=== PATIENT | female | born 1960 | race Hispanic/Latino ===

== ENCOUNTER 2017-01-13 20:44 | Emergency (ER) | payer OTHER ==
[2017-01-13 21:09] VITALS: O2SAT 97
--- NOTE | 2017-01-13 22:27 | C.PDOC ---
History Of Present Illness 57 y/o female presents to ED with c/o worsening dizziness over the last several days. Patient states she has been feeling worse, noting she was evaluated by PMD today and given rx for Antivert, but has not taken it. Otherwise, patient denies fever, chills, nausea, vomiting, or visual changes. Patient states dizziness worsens from lying down to standing up. Time Seen by Provider: 01/13/17 22:27 Chief Complaint (Nursing): Dizziness/Lightheaded History Per: Patient History/Exam Limitations: no limitations Onset/Duration Of Symptoms: Days Current Symptoms Are (Timing): Still Present Seizure Or Post-ictal Symptoms: None Fall Associated With With Symptoms: No Recent travel outside of the [place]: No Past Medical History Reviewed: Historical Data, Nursing Documentation, Vital Signs Vital Signs: Last Vital Signs Temp 97.0 F L 01/13/17 21:04 Pulse 80 01/13/17 21:04 Resp 18 01/13/17 21:04 BP 121/71 01/13/17 21:04 Pulse Ox 97 01/14/17 01:10 - Medical History PMH: Gastritis, Hypothyroidism Family History: States: Unknown Family Hx - Social History Hx Alcohol Use: No Hx Substance Use: No - Immunization History Hx Tetanus Toxoid Vaccination: No Hx Influenza Vaccination: No Hx Pneumococcal Vaccination: No Review Of Systems Constitutional: Negative for: Fever, Chills Eyes: Negative for: Vision Change Cardiovascular: Negative for: Chest Pain Respiratory: Negative for: Shortness of Breath Gastrointestinal: Negative for: Nausea, Vomiting Skin: Negative for: Rash Neurological: Positive for: Dizziness. Negative for: Headache Physical Exam - Physical Exam Appears: Non-toxic, No Acute Distress Skin: Warm, Dry Head: Atraumatic, Normacephalic Eye(s): bilateral: PERRL, EOMI Oral Mucosa: Moist Neck: Normal ROM, No Paracervical Tenderness, Supple Chest: Symmetrical Cardiovascular: Rhythm Regular Respiratory: No Rales, No Rhonchi, No Wheezing Gastrointestinal/Abdominal: Soft, No Tenderness, No Guarding, No Rebound Back: Normal Inspection Extremity: Normal ROM, Capillary Refill (< 2 sec.) Extremity: Bilateral: Normal Color And Temperature Neurological/Psych: Oriented x3, Normal Speech, Normal Cognition, No Romberg, Other (no nystagmus) ED Course And Treatment - Laboratory Results Result Diagrams: 01/13/17 23:07 01/13/17 23:07 O2 Sat by Pulse Oximetry: 97 (RA) Pulse Ox Interpretation: Normal - CT Scan/US CT Head Other Rad Studies (CT/US): Read By Radiologist, Radiology Report Reviewed CT/US Interpretation: IMPRESSION: 1. No definite acute intracranial abnormality Progress Note: CT Head, bloodwork, Zofran ordered. Reevaluation Time: 01:11 Reassessment Condition: Improved Disposition Counseled Patient/Family Regarding: Studies Performed, Diagnosis, Need For Followup - Disposition Referrals: Dixie Bain MD [Staff Provider] - Grzegorz Mcknight MD [Staff Provider] - Disposition: HOME/ ROUTINE Disposition Time: 22:27 Condition: FAIR Instructions: Dizziness (ED), Vertigo (ED), Tinnitus (ED) - Clinical Impression Clinical Impression: Dizziness, Tinnitus - Scribe Statement The provider has reviewed the documentation as recorded by the Kayleen Whittaker Provider Attestation: All medical record entries made by the Kayleen were at my direction and personally dictated by me. I have reviewed the chart and agree that the record accurately reflects my personal performance of the history, physical exam, medical decision making, and the department course for this patient. I have also personally directed, reviewed, and agree with the discharge instructions and disposition.
[2017-01-13 23:11] LABS: BASO % 0.6 % (0.0-2.0); EOS % 0.1 % (0.0-4.0); HEMATOCRIT 40.8 % (34.0-47.0); LYMPH # 1.5 K/uL (1.0-4.3); LYMPH % 19.3 % (20.0-40.0); MEAN CELL VOLUME 95.1 fL (81.0-99.0); MEAN CORPUSCULAR HEMOGLOBIN 31.1 pg (27.0-31.0); MEAN CORPUSCULAR HGB CONC 32.7 g/dL (33.0-37.0); MONO # 0.5 K/uL (0.0-0.8); NRBC % 0.1 % (0.0-2.0); RED CELL DISTRIBUTION WIDTH 15.7 % (11.5-14.5); WHITE BLOOD COUNT 7.6 K/uL (4.8-10.8)
[2017-01-13 23:19] LABS: CHLORIDE 104 mmol/L (98-107); SODIUM 139 mmol/L (132-148)
[2017-01-13 23:20] LABS: POTASSIUM 3.9 mmol/L (3.6-5.2)
[2017-01-13 23:22] LABS: ALB/GLOB RATIO 1.1 (1.0-2.1); ALKALINE PHOSPHATASE 81 U/L (38-126); ALT/SGPT 22 U/L (9-52); AST/SGOT 20 U/L (14-36); BILIRUBIN,TOTAL 0.4 mg/dL (0.2-1.3); BLOOD UREA NITROGEN 9 mg/dL (7-17); CARBON DIOXIDE 26 mmol/L (22-30); GFR AFRICAN-AMERICAN > 60; GLUCOSE,RANDOM 114 mg/dL (65-105)
[2017-01-13 23:23] LABS: CALCIUM 8.9 mg/dl (8.6-10.4)
[2017-01-13 23:53] LABS: THYROID STIMULATING HORMONE 1.43 mIU/L (0.46-4.68)
--- NOTE | 2017-01-14 00:01 | CT ---
EXAM: CT Head Without Intravenous Contrast CLINICAL HISTORY: 57 years old, female; Signs and symptoms; Dizziness TECHNIQUE: Axial computed tomography images of the head/brain without intravenous contrast. This CT exam was performed using one or more of the following dose reduction techniques: automated exposure control, adjustment of the mA and/or kV according to patient size, and/or use of iterative reconstruction technique. Coronal and sagittal reformatted images were created and reviewed. COMPARISON: No relevant prior studies available. FINDINGS: Limitations: Suboptimal positioning. No zinc plater view. Brain: No intracranial hemorrhage. No mass. No definite edema. Ventricles: No hydrocephalus. Bones/joints: No acute fracture. Soft tissues: Unremarkable. Sinuses: No acute sinusitis. Mastoid air cells: No mastoid effusion. Orbits: Unremarkable as visualized. IMPRESSION: 1. No definite acute intracranial abnormality. 2. Incidental/non-acute findings are described above.
[2017-01-14 01:17] VITALS: BP 129/78; PULSE 72; RESP 16; TEMP 98.4
== END 2017-01-14 01:28 | disposition home or self-care (01) ==
LOC: C.ER 20:44
DX: H93.19 Tinnitus, unspecified ear (principal); R42 Dizziness and giddiness
CPT/HCPCS: 70450; 80053; 84443; 85025; 96374; 99285; J2405

== ENCOUNTER 2017-01-14 13:52 | Emergency (ER) | payer OTHER ==
[2017-01-14 14:00] VITALS: RESP 16; O2SAT 100
[2017-01-14] MEDS ORDERED: Sodium Chloride 0.9% 1,000 ML IV ONE ×2 (14:49→17:17)
--- NOTE | 2017-01-14 14:50 | C.PDOC ---
Time Seen by Provider: 01/14/17 14:24 Chief Complaint (Nursing): Dizziness/Lightheaded History Per: Patient, Family Onset/Duration Of Symptoms: Days (2?), Intermittent Episodes Current Symptoms Are (Timing): Still Present Possible Causative Factor(s): Lightheaded W/Change In Head Position Fall Associated With With Symptoms: No Severity: Moderate Additional History Per: Prior Records - Symptoms Of CVA Recent Head Trauma: No Past Medical History Reviewed: Historical Data, Nursing Documentation, Vital Signs Vital Signs: Last Vital Signs Temp 98.4 F 01/14/17 17:30 Pulse 78 01/14/17 17:30 Resp 16 01/14/17 17:30 BP 122/76 01/14/17 17:30 Pulse Ox 100 01/14/17 17:30 - Medical History PMH: Gastritis, Hypothyroidism Family History: States: Unknown Family Hx - Social History Hx Alcohol Use: No Hx Substance Use: No - Immunization History Hx Tetanus Toxoid Vaccination: No Hx Influenza Vaccination: No Hx Pneumococcal Vaccination: No Review Of Systems Except As Marked, All Systems Reviewed And Found Negative. Constitutional: Negative for: Fever Eyes: Negative for: Vision Change ENT: Negative for: Ear Discharge Cardiovascular: Negative for: Chest Pain Respiratory: Negative for: Shortness of Breath Gastrointestinal: Negative for: Vomiting, Abdominal Pain Genitourinary: Negative for: Dysuria Musculoskeletal: Negative for: Neck Pain Skin: Negative for: Rash Neurological: Positive for: Dizziness. Negative for: Weakness, Numbness, Incoordination, Change in Speech, Confusion, Seizures, Altered Mental Status, Headache Physical Exam - Physical Exam Appears: Non-toxic, No Acute Distress Skin: Normal Color, Warm, Dry, No Rash Head: Atraumatic, Normacephalic Eye(s): bilateral: PERRL, EOMI Ear(s): Bilateral: Normal Neck: Normal ROM, Supple Cardiovascular: Rhythm Regular Respiratory: Normal Breath Sounds, No Accessory Muscle Use Gastrointestinal/Abdominal: Soft, No Tenderness Extremity: Normal ROM Neurological/Psych: Oriented x3, Normal Speech, No Cerebellar Signs, Normal Motor, Normal Sensation Gait: Steady ED Course And Treatment - Laboratory Results Result Diagrams: 01/14/17 15:07 01/14/17 15:07 Lab Interpretation: No Acute Changes ECG: Interpreted By Me, Viewed By Me ECG Rhythm: Sinus Rhythm, Nonspecific Changes ECG Interpretation: No Acute Changes Rate From EC O2 Sat by Pulse Oximetry: 100 Pulse Ox Interpretation: Normal Progress - Interventions Interventions:: Observation, Intravenous fluid - Medications Administered Oral: Other (Meclizine) - Data Reviewed Data Reviewed: Lab, EKG, Old records - Patient Status Patient status: Mostly improved - Continuity of Care Discussed patient case with:: Patient, Family-HIPPA compliant, ED Nurse - Patient Plan Patient Plan: Discharge, F/U with PCP, Continue present meds Disposition Counseled Patient/Family Regarding: Studies Performed, Diagnosis, Need For Followup, Rx Given - Disposition Referrals: Spike Mackay MD [Staff Provider] - Steffen Mcgowan MD [Staff Provider] - Disposition: HOME/ ROUTINE Disposition Time: 19:21 Condition: IMPROVED Additional Instructions: Follow up with your doctor. Follow up with an ENT doctor and/or Neurologist for further evaluation and treatment. Return to the ER if you develop worsening of symptoms or if you have any other concerns. Prescriptions: Meclizine [Meclizine*] 25 mg PO Q6 PRN #30 tab PRN Reason: Dizziness Instructions: Vertigo (ED) - Clinical Impression Clinical Impression: Vertigo
[2017-01-14 15:12] LABS: BASO # 0.1 K/uL (0.0-0.2); BASO % 0.6 % (0.0-2.0); EOS % 0.4 % (0.0-4.0); HEMATOCRIT 40.7 % (34.0-47.0); LYMPH # 1.6 K/uL (1.0-4.3); LYMPH % 18.5 % (20.0-40.0); MEAN CELL VOLUME 95.3 fL (81.0-99.0); MEAN CORPUSCULAR HEMOGLOBIN 30.6 pg (27.0-31.0); MEAN CORPUSCULAR HGB CONC 32.2 g/dL (33.0-37.0); MEAN PLATELET VOLUME 9.2 fL (7.2-11.7); MONO # 0.6 K/uL (0.0-0.8); MONO % 6.9 % (0.0-10.0); RED CELL DISTRIBUTION WIDTH 15.2 % (11.5-14.5); WHITE BLOOD COUNT 8.6 K/uL (4.8-10.8)
[2017-01-14 15:31] LABS: CHLORIDE 101 mmol/L (98-107); POTASSIUM 4.3 mmol/L (3.6-5.2); SODIUM 137 mmol/L (132-148)
[2017-01-14 15:33] LABS: AST/SGOT 25 U/L (14-36); BILIRUBIN,TOTAL 0.4 mg/dL (0.2-1.3); CARBON DIOXIDE 24 mmol/L (22-30); GFR AFRICAN-AMERICAN > 60
[2017-01-14 15:34] LABS: ALCOHOL SERUM < 10 mg/dl (0-10); ALKALINE PHOSPHATASE 93 U/L (38-126); ALT/SGPT 30 U/L (9-52); BLOOD UREA NITROGEN 14 mg/dL (7-17); CALCIUM 9.3 mg/dl (8.6-10.4); GLUCOSE,RANDOM 117 mg/dL (65-105); MAGNESIUM 2.2 mg/dL (1.6-2.3); TOTAL PROTEIN 8.4 g/dL (6.3-8.3)
[2017-01-14 17:11] LABS: RBC URINE < 1 /hpf (0-3); URINE BILIRUBIN NEGATIVE (NEGATIVE); URINE BLOOD NEGATIVE (NEGATIVE); URINE COLOR Straw (YELLOW); URINE GLUCOSE (UA) NORMAL (Normal); URINE KETONE NEGATIVE (NEGATIVE); URINE LEUKOCYTE ESTERASE NEG Leu/uL (Negative); URINE PROTEIN NEGATIVE (NEGATIVE); URINE UROBILINOGEN NORMAL mg/dL (0.2-1.0); WBC URINE < 1 /hpf (0-5)
[2017-01-14] MEDS ORDERED: Sodium Chloride 0.9% 1,000 ML ONE (17:27)
[2017-01-14 17:31] VITALS: BP 122/76; PULSE 78; TEMP 98.4
== END 2017-01-14 19:27 | disposition home or self-care (01) ==
LOC: C.ER 13:52
DX: R42 Dizziness and giddiness (principal)
CPT/HCPCS: 80053; 80320; 80324; 80345; 80346; 80349; 80353; 80358; 80361; 81001; 83735; 83992; 84484; 85025; 96360; 96361; 99285; J7040

== ENCOUNTER 2017-02-25 23:25 | Emergency (ER) | payer BC, OTHER ==
[2017-02-25 23:38] VITALS: TEMP 97.8; O2SAT 98
--- NOTE | 2017-02-26 00:01 | C.PDOC ---
History Of Present Illness 57 year old female who presents to the ER with a complaint of chronic dizziness with and without medication since December. Patient has had multiple reevaluations since December that have been negative; her PMD is Dr. Bain. Patient is currently compliant with her thyroid medication and meclozine. Patient reports having a Hx of lymphoma and is in remission. Denies nausea, vomiting, or headache. Time Seen by Provider: 02/25/17 23:51 Chief Complaint (Nursing): Dizziness/Lightheaded History Per: Patient History/Exam Limitations: no limitations Onset/Duration Of Symptoms: Hrs Current Symptoms Are (Timing): Still Present Recent travel outside of the [place]: No Past Medical History Reviewed: Historical Data, Nursing Documentation, Vital Signs Vital Signs: Last Vital Signs Temp 97.8 F 02/25/17 23:36 Pulse 70 02/26/17 00:10 Resp 14 02/26/17 00:10 BP 112/70 02/26/17 00:10 Pulse Ox 98 02/26/17 00:10 - Medical History PMH: Gastritis, Hypothyroidism Surgical History: No Surg Hx Family History: States: Unknown Family Hx - Social History Hx Alcohol Use: No Hx Substance Use: No - Immunization History Hx Tetanus Toxoid Vaccination: No Hx Influenza Vaccination: No Hx Pneumococcal Vaccination: No Review Of Systems Constitutional: Negative for: Fever, Chills Gastrointestinal: Negative for: Nausea, Vomiting Neurological: Positive for: Dizziness. Negative for: Headache Physical Exam - Physical Exam Appears: Non-toxic, No Acute Distress, Other (Pressured speech, anxious) Skin: Normal Color, Warm, Dry Head: Atraumatic, Normacephalic Eye(s): bilateral: Normal Inspection, PERRL, EOMI Oral Mucosa: Moist Chest: Symmetrical, No Tenderness Cardiovascular: Rhythm Regular, No Murmur Respiratory: Normal Breath Sounds, No Rales, No Rhonchi, No Wheezing Gastrointestinal/Abdominal: Soft, No Tenderness Neurological/Psych: Oriented x3, Normal Speech, Normal Cognition ED Course And Treatment O2 Sat by Pulse Oximetry: 98 (Room air) Pulse Ox Interpretation: Normal Medical Decision Making Medical Decision Making: normal exam, many prior evals for same complaints since 01/[address] 01/08, defer repeating for no new symptoms. no vertigo nor BPV here suspect anxiety or underlying psych issues advised to defer meclizine and thyroid meds for now and f/u with Dr. Kruse. Disposition Doctor Will See Patient In The: Office Counseled Patient/Family Regarding: Studies Performed, Diagnosis - Disposition Referrals: Dixie Bain MD [Staff Provider] - Disposition: HOME/ ROUTINE Disposition Time: 00:01 Condition: GOOD Additional Instructions: hold off on your Meclizine and Thyroid medicines if you do not tolerate them well. Follow up with Dr. Kruse Call for an appointment. Instructions: Dizziness (ED), Anxiety (ED) Forms: [employer] ([place]an) - Clinical Impression Clinical Impression: Anxiety, Dizziness - Scribe Statement The provider has reviewed the documentation as recorded by the Scribe Foster Wadsworth All medical record entries made by the Scribe were at my direction and personally dictated by me. I have reviewed the chart and agree that the record accurately reflects my personal performance of the history, physical exam, medical decision making, and the department course for this patient. I have also personally directed, reviewed, and agree with the discharge instructions and disposition.
[2017-02-26 00:11] VITALS: BP 112/70; PULSE 70; RESP 14
== END 2017-02-26 00:11 | disposition home or self-care (01) ==
LOC: C.ER 23:25
DX: F41.9 Anxiety disorder, unspecified (principal); R42 Dizziness and giddiness

== ENCOUNTER 2017-03-30 06:25 | Emergency (ER) | payer OTHER ==
[2017-03-30 07:07] LABS: BASO # 0.1 K/uL (0.0-0.2); BASO % 0.7 % (0.0-2.0); EOS % 0.6 % (0.0-4.0); HEMATOCRIT 38.3 % (34.0-47.0); LYMPH # 1.3 K/uL (1.0-4.3); LYMPH % 17.2 % (20.0-40.0); MEAN CELL VOLUME 94.3 fL (81.0-99.0); MEAN CORPUSCULAR HGB CONC 33.9 g/dL (33.0-37.0); MEAN PLATELET VOLUME 8.9 fL (7.2-11.7); MONO # 0.6 K/uL (0.0-0.8); MONO % 8.1 % (0.0-10.0); RED CELL DISTRIBUTION WIDTH 15.2 % (11.5-14.5); WHITE BLOOD COUNT 7.4 K/uL (4.8-10.8)
[2017-03-30 07:21] LABS: CHLORIDE 106 mmol/L (98-107); POTASSIUM 4.5 mmol/L (3.6-5.2); SODIUM 140 mmol/L (132-148)
[2017-03-30 07:23] LABS: GFR AFRICAN-AMERICAN > 60
[2017-03-30 07:24] LABS: ALB/GLOB RATIO 1.1 (1.0-2.1); ALKALINE PHOSPHATASE 72 U/L (38-126); ALT/SGPT 25 U/L (9-52); AST/SGOT 37 U/L (14-36); BILIRUBIN,TOTAL 0.8 mg/dL (0.2-1.3); BLOOD UREA NITROGEN 14 mg/dL (7-17); CARBON DIOXIDE 22 mmol/L (22-30); GLUCOSE,RANDOM 108 mg/dL (65-105); TOTAL PROTEIN 8.2 g/dL (6.3-8.3)
[2017-03-30 07:25] LABS: CALCIUM 8.7 mg/dl (8.6-10.4)
[2017-03-30 07:54] LABS: THYROID STIMULATING HORMONE 3.91 mIU/L (0.46-4.68)
[2017-03-30 08:27] VITALS: BP 115/74; PULSE 83; RESP 12; TEMP 98; O2SAT 95
--- NOTE | 2017-03-30 08:47 | C.PDOC ---
History Of Present Illness 57 year old female, with PMHx of hypothyroidism, presents to ED for evaluation of lightheadedness last night. Pt notes having similar symptoms intermittently for the past several months. Pt states her blood pressure was 145/86 at home, and she came to ED for evaluation. Pt states she would also like to have her thyroid levels checked. Patient has already been seen by ENT, Dr. Mackay, for dizziness and has scheduled appointment with neurologist, Dr. Cummings, on . She denies chest pain, shortness of breath, abdominal pain, nausea, vomiting , visual changes, extremity weakness/numbness, facial droop, slurred speech, or fever. Time Seen by Provider: 03/30/17 07:20 Chief Complaint (Nursing): Dizziness/Lightheaded History Per: Patient History/Exam Limitations: no limitations Onset/Duration Of Symptoms: Days Current Symptoms Are (Timing): Better Seizure Or Post-ictal Symptoms: None Additional History Per: Patient Past Medical History Reviewed: Historical Data, Nursing Documentation, Vital Signs Vital Signs: Last Vital Signs Temp 98.0 F 03/30/17 08:27 Pulse 83 03/30/17 08:27 Resp 12 03/30/17 08:27 BP 115/74 03/30/17 08:27 Pulse Ox 95 03/30/17 09:00 - Medical History PMH: Gastritis, Hypercholesterolemia, Hypothyroidism Surgical History: No Surg Hx Family History: States: No Known Family Hx - Social History Hx Alcohol Use: No Hx Substance Use: No - Immunization History Hx Tetanus Toxoid Vaccination: No Hx Influenza Vaccination: No Hx Pneumococcal Vaccination: No Review Of Systems Except As Marked, All Systems Reviewed And Found Negative. Constitutional: Negative for: Fever, Chills Cardiovascular: Positive for: Light Headedness. Negative for: Chest Pain, Palpitations Respiratory: Negative for: Cough, Shortness of Breath Gastrointestinal: Negative for: Nausea, Vomiting, Abdominal Pain Neurological: Negative for: Weakness, Numbness, Change in Speech, Confusion, Seizures, Altered Mental Status, Headache Physical Exam - Physical Exam Appears: Well, Non-toxic, No Acute Distress Skin: Normal Color, Warm, Dry Head: Atraumatic, Normacephalic Eye(s): bilateral: Normal Inspection, PERRL, EOMI Oral Mucosa: Moist Neck: Supple Chest: Symmetrical Cardiovascular: Rhythm Regular, No Murmur Respiratory: Normal Breath Sounds, No Rales, No Rhonchi, No Wheezing Gastrointestinal/Abdominal: Normal Exam, Bowel Sounds, Soft, No Tenderness Extremity: Normal ROM Neurological/Psych: Oriented x3, Normal Speech, Normal Cognition, Normal Cranial Nerves, No Cerebellar Signs, Normal Motor, Normal Sensation, Normal Reflexes, No Dysarthria, No Romberg Gait: Steady ED Course And Treatment - Laboratory Results Result Diagrams: 03/30/17 07:04 03/30/17 07:04 O2 Sat by Pulse Oximetry: 95 (on RA) Pulse Ox Interpretation: Normal Progress Note: Blood work ordered and reviewed. Reevaluation Time: 08:30 Reassessment Condition: Improved (Patient reassessed, is currently resting comfortably and states she feels well, has no symptoms. Blood work, including TSH, are WNL. Patient is well appearing, with normal vitals, and is ambulating normally in ED. Patient instructed to follow up with PMD in 1-2 days, and with Dr. Cummings as scheduled. She understands she should return to Ed if symptoms worsen/return.) Disposition Counseled Patient/Family Regarding: Studies Performed, Diagnosis, Need For Followup - Disposition Referrals: Dixie Bain MD [Primary Care Provider] - Navid Cummings MD [Staff Provider] - Disposition: HOME/ ROUTINE Disposition Time: 08:30 Condition: STABLE Additional Instructions: FOLLOW UP WITH DR CUMMINGS SCHEDULED, AND WITH YOUR DOCTOR IN 1-2 DAYS RETURN TO ER IF YOU HAVE ANY CONCERNING SYMPTOMS Forms: General Discharge Instructions, [facility] (Turkmen) Print Language: [email or web address] - Clinical Impression Clinical Impression: Dizziness - Scribe Statement The provider has reviewed the documentation as recorded by the Kayleen Martinez All medical record entries made by the Kayleen were at my direction and personally dictated by me. I have reviewed the chart and agree that the record accurately reflects my personal performance of the history, physical exam, medical decision making, and the department course for this patient. I have also personally directed, reviewed, and agree with the discharge instructions and disposition.
--- NOTE | 2017-03-31 17:52 | CARD ---
APPROVED REPORT EKG Measurement Heart [id number] [id number] <Conclusion> Normal sinus rhythm Normal ECG
== END 2017-03-30 08:42 | disposition home or self-care (01) ==
LOC: SUPCPDRO 06:25 → C.ER 06:25
DX: R42 Dizziness and giddiness (principal); E03.9 Hypothyroidism, unspecified

== ENCOUNTER 2017-07-05 20:00 | Emergency (ER) | payer OTHER ==
[2017-07-05 21:12] LABS: BASO % 0.5 % (0.0-2.0); EOS # 0.1 K/uL (0.0-0.7); EOS % 1.3 % (0.0-4.0); HEMATOCRIT 41.8 % (34.0-47.0); LYMPH % 15.5 % (20.0-40.0); MEAN CELL VOLUME 94.9 fL (81.0-99.0); MEAN CORPUSCULAR HEMOGLOBIN 31.5 pg (27.0-31.0); MEAN CORPUSCULAR HGB CONC 33.2 g/dL (33.0-37.0); MEAN PLATELET VOLUME 9.3 fL (7.2-11.7); MONO # 0.5 K/uL (0.0-0.8); MONO % 6.8 % (0.0-10.0); NRBC % 0.1 % (0.0-2.0); RED CELL DISTRIBUTION WIDTH 15.3 % (11.5-14.5); WHITE BLOOD COUNT 6.8 K/uL (4.8-10.8)
--- NOTE | 2017-07-05 21:21 | C.PDOC ---
History Of Present Illness Perlita Menon is a 57 year old female, with a past medical history of HTN and hypothyroidism, who presents to the emergency department complaining of dizziness, weakness, and palpitations onset since yesterday. Patient also reports having a high blood pressure, she is currently taking medications for hypothyroidism. Patient states that on early May she had an URI and was given Zithromax. After she was done with the medication, she began feeling chest tightness. No further medical complaints. PMD: Dixie Bain Time Seen by Provider: 07/05/17 20:27 Chief Complaint (Nursing): Dizziness/Lightheaded History Per: Patient History/Exam Limitations: no limitations Onset/Duration Of Symptoms: Days (x1) Seizure Or Post-ictal Symptoms: None Fall Associated With With Symptoms: No Pain Scale Rating Of: 5 Past Medical History Reviewed: Historical Data, Nursing Documentation, Vital Signs Vital Signs: Last Vital Signs Temp 98.6 F 07/05/17 20:08 Pulse 100 H 07/05/17 22:00 Resp 16 07/05/17 22:00 BP 132/74 07/05/17 22:00 Pulse Ox 97 07/06/17 00:02 - Medical History PMH: Gastritis, HTN, Hypercholesterolemia, Hypothyroidism Denies: Chronic Kidney Disease Family History: States: Unknown Family Hx - Social History Hx Tobacco Use: No Hx Alcohol Use: No Hx Substance Use: No - Immunization History Hx Tetanus Toxoid Vaccination: No Hx Influenza Vaccination: No Hx Pneumococcal Vaccination: No Review Of Systems Except As Marked, All Systems Reviewed And Found Negative. Constitutional: Positive for: Weakness Cardiovascular: Positive for: Palpitations Neurological: Positive for: Dizziness Physical Exam - Physical Exam Appears: No Acute Distress Skin: Normal Color, Warm, Dry Head: Atraumatic, Normacephalic Eye(s): bilateral: Normal Inspection, PERRL, EOMI Neck: Normal, Normal ROM, Supple Cardiovascular: Rhythm Regular, Murmur (3/6 systolic ) Respiratory: Normal Breath Sounds, No Accessory Muscle Use Gastrointestinal/Abdominal: Normal Exam, Soft, No Tenderness Extremity: Normal ROM, No Pedal Edema, No Deformity, No Swelling Neurological/Psych: Oriented x3, Normal Speech ED Course And Treatment - Laboratory Results Result Diagrams: 07/05/17 21:09 07/05/17 21:09 ECG: Interpreted By Me, Viewed By Me ECG Rhythm: Sinus Rhythm Interpretation Of ECG: No intervals, no axis deviation, no ST-T wave abnormalities Rate From EC O2 Sat by Pulse Oximetry: 97 (RA) Pulse Ox Interpretation: Normal - CT Scan/US CT Head Other Rad Studies (CT/US): Read By Radiologist, Radiology Report Reviewed CT/US Interpretation: IMPRESSION: No acute intracranial abnormality Medical Decision Making Medical Decision Making: Initial Impression: Dizziness and palpitations Initial Plan: --Head w/o contrast [CT] --EKG --B-type Natriuretic peptide --Comp Metabolic Panel --Thyroid Profile ---Troponin I --Chest two views (PA/LAT) [RAD] --Urinalysis --reevaluation 0002 - patient feeling better, will treat for dehydration, uti, and vertigo. Advised patient to follow up with her doctor tomorrow AM. Patient states improvement. prelim reading of cxr - nad repeat hr - 92 bpm -Reviewed her notes, she was seen in February for similar dizziness and palpitations. She was discharged home with symptoms similar to today's presentations. Disposition Counseled Patient/Family Regarding: Studies Performed, Diagnosis, Need For Followup, Rx Given - Disposition Disposition: HOME/ ROUTINE Disposition Time: 00:03 Condition: IMPROVED Additional Instructions: follow up with your doctor tomorrow take medications as prescribed call to make an appointment return to hospital if symptoms worsens or progress Prescriptions: Ciprofloxacin HCl [Cipro] 500 mg PO BID #10 tab Meclizine [Meclizine*] 25 mg PO TID PRN #15 tab PRN Reason: Dizziness Ondansetron ODT [Zofran ODT] 4 mg PO TID PRN #12 odt PRN Reason: Nausea/Vomiting Instructions: Dehydration (ED), Urinary Tract Infection in Women (ED), Vertigo (ED) Forms: [employer] (Upper Sorbian), General Discharge Instructions - Clinical Impression Clinical Impression: Dizziness, UTI (urinary tract infection), Dehydration
[2017-07-05 21:31] LABS: ALKALINE PHOSPHATASE 63 U/L (38-126); ALT/SGPT 38 U/L (9-52); AST/SGOT 30 U/L (14-36); BILIRUBIN,TOTAL 0.3 mg/dL (0.2-1.3); BLOOD UREA NITROGEN 27 mg/dL (7-17); CALCIUM 8.6 mg/dl (8.6-10.4); CARBON DIOXIDE 27 mmol/L (22-30); CHLORIDE 100 mmol/L (98-107); GFR AFRICAN-AMERICAN > 60; GLUCOSE,RANDOM 131 mg/dL (65-105); POTASSIUM 4.2 mmol/L (3.6-5.2); SODIUM 135 mmol/L (132-148); TOTAL PROTEIN 9.1 g/dL (6.3-8.3)
[2017-07-05 21:34] LABS: ALB/GLOB RATIO 0.9 (1.0-2.1)
[2017-07-05] MEDS ORDERED: DiphenhydrAMINE 50 mg/ml Inj ONE (21:35)
[2017-07-05 21:54] LABS: RBC URINE < 1 /hpf (0-3); URINE BILIRUBIN NEGATIVE (NEGATIVE); URINE BLOOD NEGATIVE (NEGATIVE); URINE COLOR Straw (YELLOW); URINE GLUCOSE (UA) NORMAL (Normal); URINE KETONE NEGATIVE (NEGATIVE); URINE LEUKOCYTE ESTERASE 1+ Leu/uL (Negative); URINE PROTEIN NEGATIVE (NEGATIVE); URINE UROBILINOGEN NORMAL mg/dL (0.2-1.0); WBC URINE 15 /hpf (0-5)
[2017-07-05 21:56] LABS: FREE T4 0.81 ng/dL (0.78-2.19)
[2017-07-05 22:10] LABS: THYROID STIMULATING HORMONE 3.03 mIU/L (0.46-4.68)
[2017-07-05 22:47] VITALS: RESP 16
--- NOTE | 2017-07-05 22:59 | CT ---
EXAM: CT Head Without Intravenous Contrast EXAM DATE/TIME: 07/05/2017 8:47 PM CLINICAL HISTORY: 57 years old, female; Signs and symptoms; Dizziness TECHNIQUE: Axial computed tomography images of the head/brain without intravenous contrast. All CT scans at this facility use one or more dose reduction techniques, viz.: automated exposure control; ma/kV adjustment per patient size (including targeted exams where dose is matched to indication; i.e. head); or iterative reconstruction technique. Coronal and sagittal reformatted images were created and reviewed. COMPARISON: CT - HEAD W/O CONTRAST 2017-01-13 23:45 FINDINGS: Brain: Ventricles are normal in size and configuration. There is no midline shift. There are no intra-axial or extra-axial mass lesions or areas of hemorrhage. There are no abnormal fluid collections. Reis-white differentiation is maintained. Ventricles: See above. Bones: Cranial vault is intact. Soft tissues: unremarkable Sinuses: There is no acute sinusitis. No Ears and mastoids: Middle ears and mastoids are unremarkable Orbits: Orbital contents are unremarkable. IMPRESSION: No acute intracranial abnormality
[2017-07-05] MEDS ORDERED: Sodium Chloride 0.9% 1,000 ML IV ONE (23:18)
[2017-07-05 23:22] VITALS: O2SAT 97
[2017-07-05] MEDS ORDERED: Sodium Chloride 0.9% 1,000 ML ONE (23:34)
[2017-07-06 00:39] VITALS: BP 127/68; PULSE 94; TEMP 98.2
--- NOTE | 2017-07-06 07:11 | RAD ---
HISTORY: chest pain COMPARISON: No prior. TECHNIQUE: Chest PA and lateral FINDINGS: LUNGS: Mild biapical pleural thickening. Mild diffuse increased interstitial lung markings. Mild patchy increased markings at the lung bases. Clinical correlation. PLEURA: No significant pleural effusion identified. No pneumothorax apparent. CARDIOVASCULAR: Normal. OSSEOUS STRUCTURES: No significant abnormalities. VISUALIZED UPPER ABDOMEN: Normal. OTHER FINDINGS: None. IMPRESSION: Mild biapical pleural thickening. Mild diffuse increased interstitial lung markings. Mild patchy increased markings at the lung bases. Clinical correlation.
--- NOTE | 2017-07-07 13:20 | CARD ---
APPROVED REPORT EKG Measurement Heart [id number] <Conclusion> Normal sinus rhythm Normal ECG
== END 2017-07-06 00:46 | disposition home or self-care (01) ==
LOC: C.ER 20:00
DX: E86.0 Dehydration (principal); N39.0 Urinary tract infection, site not specified; R42 Dizziness and giddiness; I10 Essential (primary) hypertension; E78.00 Pure hypercholesterolemia, unspecified; E03.9 Hypothyroidism, unspecified
CPT/HCPCS: 70450; 71020; 80053; 81001; 83880; 84439; 84443; 84484; 85025; 93005; 96360; 99285; J7040

== ENCOUNTER 2018-07-27 11:22 | Outpatient (CLI) | payer OTHER | END 2018-07-27 11:23 | disposition home or self-care (01) | LOC: C.LAB 11:22 | DX: E55.9 Vitamin D deficiency, unspecified (principal); E03.9 Hypothyroidism, unspecified; E78.2 Mixed hyperlipidemia; E53.8 Deficiency of other specified B group vitamins ==

== ENCOUNTER 2018-08-30 11:11 | Outpatient (CLI) | payer OTHER | END 2018-08-30 11:12 | disposition home or self-care (01) | LOC: C.RADH 11:11 | DX: E03.9 Hypothyroidism, unspecified (principal); E78.2 Mixed hyperlipidemia; E55.9 Vitamin D deficiency, unspecified; E53.8 Deficiency of other specified B group vitamins ==

== ENCOUNTER 2018-09-07 12:10 | Outpatient (CLI) | payer OTHER | END 2018-09-07 12:11 | disposition home or self-care (01) | LOC: C.VASC 12:11 ==

== ENCOUNTER 2018-09-28 11:37 | Outpatient (CLI) | payer OTHER | END 2018-09-28 11:38 | disposition home or self-care (01) | LOC: C.LAB 11:37 | DX: E55.9 Vitamin D deficiency, unspecified (principal) ==

== ENCOUNTER 2018-10-30 12:26 | Emergency (ER) | payer OTHER ==
--- NOTE | 2018-10-30 14:40 | C.PDOC ---
History Of Present Illness Patient is a 58 year old female, with a PMHx of chronic b/l leg edema and general muscle pain x1 year onset since starting synthroid, who presents to the ED c/o worsening left groin pain since last night. Patient now complains of dif ficulty walking, pain worse with bear and movement. Patient is s/p venous duplex several weeks ago by PMD for leg pain, and patient states that "she said it was normal". R leg, arms WNL. Patient is on cholesterol RX, low cholesterol diet and is + intentional weight loss. She denies any trauma, or focal weakness. WORSENING L GROIN PAIN SINCE LAST NIGHT. NOW DIFF WALKING, PAIN WORSE WT BEAR AND MOVEMENT. NO TRAUMA. DENIES FOCAL WEAKNESS. PS S/P VENOUS DUPLEX SEV WEEKS AGO BY PMD FOR LEG PAIN, "SHE SAID IT WAS NORMAL". R LEG, ARMS WNL. HO CHRONIC B/L LEG EDEMA. HO GEN MUSCLE PAIN X 1 YR ONSET SINCE STARTING SYNTHROID. ON CHOLESTEROL RX, LOW CHOLESTEROL DIET +INTENTIONAL WT LOSS. EXAM NONTOXIC ANICTERIC EXT L HIP LIMITED AROM DUE TO PAIN NO FOCAL TEND. NO ASYM. ATRAUM 2+PITTING EDEMA ?JAUNDICE REMAINDER NEG <Tessy Dodge - Last Filed: 10/30/18 18:30> History Per: Patient History/Exam Limitations: no limitations Onset/Duration Of Symptoms: Days (1) Current Symptoms Are (Timing): Still Present Recent travel outside of the [place]: No Additional History Per: Patient <Tessy Dodge - Last Filed: 10/30/18 18:30> <Layo Durán - Last Filed: 10/30/18 19:47> Time Seen by Provider: 10/30/18 14:11 Chief Complaint (Nursing): Weakness/Neurological Deficit Past Medical History Reviewed: Historical Data, Nursing Documentation, Vital Signs Vital Signs: Last Vital Signs Temp 98.5 F 10/30/18 12:39 Pulse 94 H 10/30/18 12:39 Resp 18 10/30/18 12:39 BP 122/79 10/30/18 12:39 Pulse Ox 96 10/30/18 12:39 - Medical History PMH: Gastritis, HTN, Hypercholesterolemia, Hypothyroidism Denies: Chronic Kidney Disease Surgical History: No Surg Hx Family History: States: Unknown Family Hx - Social History Hx Tobacco Use: No Hx Alcohol Use: No Hx Substance Use: No - Immunization History Hx Tetanus Toxoid Vaccination: No Hx Influenza Vaccination: No Hx Pneumococcal Vaccination: No <Tessy Dodge - Last Filed: 10/30/18 18:30> Vital Signs: Last Vital Signs Temp 99.1 F 10/30/18 18:45 Pulse 89 10/30/18 18:45 Resp 17 10/30/18 18:45 BP 131/73 10/30/18 18:45 Pulse Ox 97 10/30/18 18:45 <Layo Durán - Last Filed: 10/30/18 19:47> Review Of Systems Except As Marked, All Systems Reviewed And Found Negative. Genitourinary: Positive for: Other (left groin pain) Musculoskeletal: Positive for: Foot Pain (pedal edema) <Tessy Dodge - Last Filed: 10/30/18 18:30> Physical Exam - Physical Exam Appears: Non-toxic, No Acute Distress Skin: Other (?JAUNDICE) Head: Atraumatic, Normacephalic Eye(s): bilateral: Other (anicteric) Chest: Symmetrical, No Deformity Cardiovascular: Rhythm Regular, No Murmur Respiratory: Other (NARD) Extremity: Pedal Edema (2+PITTING EDEMA), Other (EXT L HIP LIMITED AROM DUE TO PAIN NO FOCAL TEND. NO ASYM. ATRAUM) Neurological/Psych: Oriented x3, Normal Speech, Normal Cognition <Tessy Dodge - Last Filed: 10/30/18 18:30> ED Course And Treatment - Laboratory Results Result Diagrams: 10/30/18 14:59 10/30/18 14:59 ECG: Interpreted By Me, Viewed By Me ECG Rhythm: Sinus Rhythm Rate From EC O2 Sat by Pulse Oximetry: 96 (on RA) Pulse Ox Interpretation: Normal - Radiology CXR: Interpreted by Me CXR Interpretation: Yes: No Acute Disease - Other Rad L HIP PELVIS X-Ray: Interpreted by Me (NEG) - CT Scan/US DUPLEX Other Rad Studies (CT/US): Radiology Report Reviewed (NEG) Progress Note: Plan: CXR. Labs. Venous Duplex. Xray Lft Hip. Toradol 30mg IVP. Morphine 2mp IVP <Tessy Dodge - Last Filed: 10/30/18 18:30> - Laboratory Results Result Diagrams: 10/30/18 14:59 10/30/18 14:59 Lab Results: Total Bilirubin 1.5 mg/dL (0.2-1.3) H 10/30/18 14:59 AST 34 U/L (14-36) 10/30/18 14:59 ALT 16 U/L (9-52) 10/30/18 14:59 Alkaline Phosphatase 72 U/L (38-126) 10/30/18 14:59 Total Protein 8.2 g/dL (6.3-8.3) 10/30/18 14:59 Albumin 4.4 g/dL (3.5-5.0) 10/30/18 14:59 Globulin 3.8 gm/dL (2.2-3.9) 10/30/18 14:59 Albumin/Globulin Ratio 1.2 (1.0-2.1) 10/30/18 14:59 Urine Color Yellow (YELLOW) 10/30/18 18:37 Urine Clarity Clear (Clear) 10/30/18 18:37 Urine pH 6.0 (5.0-8.0) 10/30/18 18:37 Ur Specific [place] 1.023 (1.003-1.030) 10/30/18 18:37 Urine Protein 1+ mg/dL (NEGATIVE) H 10/30/18 18:37 Urine Glucose (UA) Normal mg/dL (Normal) 10/30/18 18:37 Urine Ketones Trace mg/dL (NEGATIVE) 10/30/18 18:37 Urine Blood Negative (NEGATIVE) 10/30/18 18:37 Urine Nitrate Negative (NEGATIVE) 10/30/18 18:37 Urine Bilirubin Negative (NEGATIVE) 10/30/18 18:37 Urine Urobilinogen Normal mg/dL (0.2-1.0) 10/30/18 18:37 Ur Leukocyte Esterase Neg Marcela/uL (Negative) 10/30/18 18:37 Urine WBC (Auto) 1 /hpf (0-5) 10/30/18 18:37 Urine RBC (Auto) 1 /hpf (0-3) 10/30/18 18:37 Pulse Ox Interpretation: Normal Reevaluation Time: 19:39 Reassessment Condition: Improved <Layo Durán - Last Filed: 10/30/18 19:47> Progress - Re-Evaluation Re-evaluation Note: 10/30/18 18:29 CO PERSIST PAIN. AMBUL FULL WT BEAR BUT L LEG LIMP. PS TRIED BEDSIDE COMMODE BUT UNABLE TO GIVE UA. PENDING STRAIGHT CATH. - Data Reviewed Data Reviewed: Lab, Diagnostic imaging, Old records <Tessy Dodge - Last Filed: 10/30/18 18:30> Medical Decision Making Medical Decision Making: Upon provider reevaluation patient is feeling better, is medically stable, and requires no further treatment in the ED at this time. Patient will be discharged home . Counseling was provided and all questions were answered regarding diagnosis and need for follow up with dixie bain. There is agreement to discharge plan. Return if symptoms persist or worsen. <Layo Durán - Last Filed: 10/30/18 19:47> Disposition - Disposition Disposition Time: 19:00 <Tessy Dodge - Last Filed: 10/30/18 18:30> Counseled Patient/Family Regarding: Studies Performed, Diagnosis, Need For Followup <Layo Durán - Last Filed: 10/30/18 19:47> - Disposition Referrals: Dixie Bain MD [Staff Provider] - Disposition: HOME/ ROUTINE Condition: FAIR Additional Instructions: Please return if symptoms recur Instructions: Hip Pain (DC) Forms: [employer] (Sami) - Clinical Impression Clinical Impression: Groin pain, Difficulty walking - Scribe Statement The provider has reviewed the documentation as recorded by the Anantibart Yi All medical record entries made by the Scribe were at my direction and persona lly dictated by me. I have reviewed the chart and agree that the record accurately reflects my personal performance of the history, physical exam, medical decision making, and the department course for this patient. I have also personally directed, reviewed, and agree with the discharge instructions and disposition. <Tessy Dodge - Last Filed: 10/30/18 18:30> Physician Patient Turnover Patient Signed Over To: Layo Durán Handoff Comments: FU UA, DISPO <Tessy Dodge - Last Filed: 10/30/18 18:30>
[2018-10-30 15:03] LABS: BASO # 0.1 K/uL (0.0-0.2); BASO % 0.5 % (0.0-2.0); HEMOGLOBIN 12.3 g/dL (11.0-16.0); LYMPH # 0.7 K/uL (1.0-4.3); LYMPH % 5.6 % (20.0-40.0); MEAN CELL VOLUME 98.1 fL (81.0-99.0); MEAN CORPUSCULAR HGB CONC 33.6 g/dL (33.0-37.0); MEAN PLATELET VOLUME 10.9 fL (7.2-11.7); MONO # 1.4 K/uL (0.0-0.8); MONO % 10.8 % (0.0-10.0); NEUT # 10.9 K/uL (1.8-7.0); NEUT % 83.1 % (50.0-75.0); PLATELET COUNT 201 K/uL (130-400); RBC 3.71 Mil/uL (3.80-5.20); RED CELL DISTRIBUTION WIDTH 15.4 % (11.5-14.5)
[2018-10-30 15:05] LABS: WHITE BLOOD COUNT 13.1 K/uL (4.8-10.8)
[2018-10-30 15:14] LABS: BLOOD UREA NITROGEN 11 mg/dL (7-17); CALCIUM 9.4 mg/dl (8.6-10.4); GFR NON-AFRICAN AMERICAN > 60
[2018-10-30 15:15] LABS: ALB/GLOB RATIO 1.2 (1.0-2.1); ALBUMIN 4.4 g/dL (3.5-5.0); ALT/SGPT 16 U/L (9-52); AST/SGOT 34 U/L (14-36)
[2018-10-30 15:30] LABS: BANDS 2 % (0-2); MONOCYTE 9 % (0-10); TOTAL CELLS COUNTED 100
[2018-10-30 15:31] LABS: LYMPHOCYTE 5 % (20-40); NEUTROPHIL 84 % (50-75); PLATELET ESTIMATE NORMAL (NORMAL)
--- NOTE | 2018-10-30 16:35 | RAD ---
HISTORY: MED CLEAR COMPARISON: Chest x-ray performed 07/05/17 TECHNIQUE: Chest, one view. FINDINGS: LUNGS: No focal consolidation. Please note that chest x-ray has limited sensitivity for the detection of pulmonary masses. PLEURA: No significant pleural effusion identified. No definite pneumothorax . CARDIOVASCULAR: Heart size appears within normal limits. No significant atherosclerotic calcification present. OSSEOUS STRUCTURES: No acute osseous abnormality identified. VISUALIZED UPPER ABDOMEN: Unremarkable. OTHER FINDINGS: None. IMPRESSION: No focal consolidation.
--- NOTE | 2018-10-30 17:35 | RAD ---
PROCEDURE: Left Hip X-ray Radiographs. HISTORY: PAIN COMPARISON: None. TECHNIQUE: 2 views obtained. FINDINGS: BONES: Normal. No fracture. JOINTS: Normal. SOFT TISSUES: Normal. OTHER FINDINGS: Surgical suture line sigmoid colon. IMPRESSION: Normal left hip radiographs.
[2018-10-30 18:46] VITALS: BP 131/73; PULSE 89; RESP 17; TEMP 99.1; O2SAT 97
[2018-10-30 18:53] LABS: URINE BILIRUBIN NEGATIVE (NEGATIVE); URINE BLOOD NEGATIVE (NEGATIVE); URINE CLARITY Clear (Clear); URINE COLOR Yellow (YELLOW); URINE GLUCOSE (UA) NORMAL (Normal); URINE LEUKOCYTE ESTERASE NEG Leu/uL (Negative); URINE PROTEIN 1+ mg/dL (NEGATIVE); URINE UROBILINOGEN NORMAL mg/dL (0.2-1.0)
--- NOTE | 2018-10-31 12:15 | VASCLAB ---
Date of service: 10/30/2018 PROCEDURE: Left Lower Extremity Venous Duplex Exam. HISTORY: L GROIN PAIN R/O DVT PRIORS: None. TECHNIQUE: Left common femoral, femoral, popliteal and posterior tibial, peroneal and great saphenous veins were evaluated. Flow was assessed with color Doppler, compressibility, assessment of phasic flow and augmentation response. Report prepared by Foster Good, SUSAN, RVT FINDINGS: LEFT: 1. Common Femoral Vein: 1.1. Compressibility - Fully compressible: Thrombus - None : Flow - Phasic: Augmentation -Normal: Reflux - None. 2. Femoral Vein: 2.1. Compressibility - Fully compressible: Thrombus - None: Flow - Phasic: Augmentation -Normal: Reflux - None. 3. Popliteal Vein: 3.1. Compressibility - Fully compressible: Thrombus - None: Flow - Phasic: Augmentation -Normal: Reflux - None. 4. Posterior Tibial Vein: 4.1. Compressibility - Fully compressible: Thrombus - None: Flow - Phasic: Augmentation -Normal: Reflux - None. 5. Peroneal Vein: 5.1. Compressibility - Fully compressible: Thrombus - None: Flow - Phasic: Augmentation -Normal: Reflux - None. 6. Great Saphenous Vein: 6.1. Compressibility - Fully compressible: Thrombus - None: Flow - Phasic: Augmentation - Normal: Reflux - None. OTHER FINDINGS: IMPRESSION: No evidence of deep or superficial vein thrombosis of the left lower extremity with excellent venous flow. Normal valve function noted of the left side. Normal venous flow noted in the right common femoral vein.
== END 2018-10-30 20:22 | disposition home or self-care (01) ==
LOC: C.ER 12:26
DX: R10.32 Left lower quadrant pain (principal); R26.2 Difficulty in walking, not elsewhere classified
CPT/HCPCS: 71045; 73502; 80053; 81001; 82550; 82948; 85025; 93005; 93971; 96374; 96375; 99285; J1885; J2270

== ENCOUNTER 2018-11-16 07:42 | Outpatient (CLI) | payer OTHER | END 2018-11-16 07:43 | disposition home or self-care (01) | LOC: C.LAB 07:42 | DX: E78.2 Mixed hyperlipidemia (principal) ==

== ENCOUNTER 2018-11-23 09:34 | Outpatient (CLI) | payer OTHER | END 2018-11-23 09:35 | disposition home or self-care (01) | LOC: C.CARD 09:34 | DX: I35.0 Nonrheumatic aortic (valve) stenosis (principal) ==